=== PATIENT | female | born 1965 | race Two or more races ===

== ENCOUNTER 2016-12-31 18:41 | Inpatient (IN) | payer BC ==
[~2016-12-31] VITALS: Ht 165.1 cm; Wt 65.8 kg
[2016-12-31] MEDS ORDERED: MECLIZINE HCL 25 MG TABLET ONE (18:45)
[2016-12-31] MEDS ORDERED: ONDANSETRON HCL/PF 4 MG/2 ML VIAL ONE ×2 (18:45→20:53)
[2016-12-31 18:58] LABS: BASOPHILS # (AUTO) 0.1 /CMM (0.0-0.2); EOSINOPHILS # (AUTO) 0.4 /CMM (0.0-0.7); EOSINOPHILS % (AUTO) 5.3 % (0.0-6.0); HEMATOCRIT 40 % (33-45); HEMOGLOBIN 13.6 g/dL (11.5-14.8); LYMPHOCYTES # (AUTO) 2.6 /CMM (0.8-4.8); MEAN CORPUSCULAR HEMOGLOBIN 31 PG (26.0-33.0); MEAN CORPUSCULAR HGB CONC 34 g/dl (31.0-36.0); MEAN CORPUSCULAR VOLUME 92 fL (82-100); MONOCYTES # (AUTO) 0.5 /CMM (0.1-1.30); MONOCYTES % (AUTO) 7.3 % (2.0-12.0); NEUTROPHILS # (AUTO) 3.8 /CMM (1.8-8.9); NEUTROPHILS % (AUTO) 51.4 % (43.0-81.0); PLATELET COUNT (AUTO) 289 /CMM (150-450); RDW COEFFICIENT OF VARIATION 11.5 (11.5-15.0); RED BLOOD CELL COUNT(AUTO) 4.37 MIL/uL (4.0-5.2); WHITE BLOOD COUNT (AUTO) 7.4 K/uL (4.3-11.0)
[2016-12-31] MEDS ORDERED: IV NS 0.9% 1,000 ML BAG IV ONE ×2 (19:00→23:00)
[2016-12-31] MEDS ORDERED: ONDANSETRON HCL/PF 4 MG/2 ML VIAL IV ONE ×2 (19:00→21:30)
[2016-12-31] MEDS ORDERED: MECLIZINE HCL 25 MG TABLET PO ONE (19:00)
[2016-12-31] MEDS ORDERED: DIAZEPAM 5 MG/ML 2 ML DISP.SYRIN IV ONE (19:00)
--- NOTE | 2016-12-31 19:00 | NUR ---
[id number]: NAUSEA, VOMITING, VERTIGO x 30 MIN LEGAL WORD PROCESSOR, BS 134 IN THE FIELD, NAD NOTED, VSS, RESP EVEN AND UNLABORED, PUT ON HOSPITAL GOWN, AND MONITOR, WAITING FOR MD JUNG.
[2016-12-31 19:09] LABS: CALCIUM, SERUM 9.2 mg/dL (8.5-10.1); CARBON DIOXIDE 25 mmol/L (21-32); CHLORIDE 104 mmol/L (98-107); CREATININE 0.7 mg/dL (0.6-1.3); GLUCOSE 123 mg/dL (74-106); POTASSIUM 3.4 mmol/L (3.5-5.1); SODIUM SERUM 139 mmol/L (136-145); UREA NITROGEN, BLOOD 15 mg/dL (7-18)
[2016-12-31 19:17] LABS: TROPONIN I < 0.017 ng/mL (0.00-0.056)
[2016-12-31] MEDS ORDERED: LORAZEPAM INJ 2 MG/ML VIAL ONE (19:53)
[2016-12-31] MEDS ORDERED: LORAZEPAM INJ 2 MG/ML VIAL IV ONE (20:00)
[2016-12-31] MEDS ORDERED: diphenhydrAMINE HCL 50 MG/ML VIAL ONE (20:53)
[2016-12-31] MEDS ORDERED: diphenhydrAMINE HCL 50 MG/ML VIAL IV ONE (21:30)
--- NOTE | 2016-12-31 21:35 | NUR ---
CALLED [facility], MACHINE STRIPER WAS PAGED.
--- NOTE | 2016-12-31 21:43 | NUR ---
Patient is resting comfortably in bed with eyes closed. Easily aroused. VSS
--- NOTE | 2016-12-31 23:15 | NUR ---
[id number] CONFIRMATION NUMBER FROM MED RESPONSE; ETA 1 HOUR
[2016-12-31 23:30] VITALS: BP 135/83
[2016-12-31] MEDS ORDERED: HYDROCODONE/APAP 5/325MG 1 EACH TABLET PO PRN (23:30)
[2016-12-31] MEDS ORDERED: MAGNESIUM HYDROXIDE 30 ML UDC PO PRN (23:30)
[2016-12-31] MEDS ORDERED: ACETAMINOPHEN 325 MG TABLET PO PRN (23:30)
[2016-12-31] MEDS ORDERED: ZOLPIDEM TARTRATE 5 MG TABLET PO PRN (23:30)
[2016-12-31] MEDS ORDERED: Z GUARD REMEDY 2 OZ OINT TP PRN (23:30)
--- NOTE | 2016-12-31 23:30 | NUR ---
BRANCH ACCOUNT EXECUTIVE INITIAL NOTES PT RECEIVED FROM ER VIA RANNA MARIE. PT IS HAVING VERTIGO AND UNABLE TO ANSWER QUESTIONS FULLY AT THIS TIME. AT BEDSIDE PROVIDING INFORMATION. PT HAD ONE EPISODE OF VOMITING ON ADMIT. IV ACCESS IS INTACT AND PATENT. PT ABLE TO MAKE NEEDS KNOW AND USES A BEDPAN. VITALS WNL. NO SIGNS OF SOB OR DISTRESS. BREATHING EVENLY AND UNLABORED ON RA. AWAITING ORDERS FROM ADMITTING. WILL CONTINUE TO MONITOR PT.
[2017-01-01] VITALS (8 sets, daily range): BP systolic 123–133; BP diastolic 73–82
[2017-01-01] MEDS: IV NS 0.9% 1,000 ML IV PRN ×2 (00:08→15:46)
[2017-01-01] MEDS ORDERED: ENOXAPARIN SODIUM 40 MG/0.4 ML DISP.SYRIN SQ SCH (01:30)
[2017-01-01] MEDS ORDERED: DIAZEPAM 5 MG/ML 2 ML DISP.SYRIN IV PRN (01:30)
[2017-01-01] MEDS ORDERED: ENOXAPARIN SODIUM 40 MG/0.4 ML DISP.SYRIN SQ ONE (01:50)
[2017-01-01] MEDS ORDERED: METOCLOPRAMIDE HCL 10 MG/2 ML VIAL ONE (03:47)
[2017-01-01] MEDS: METOCLOPRAMIDE HCL 10 MG/2 ML VIAL IV PRN (03:49)
[2017-01-01] MEDS ORDERED: ONDANSETRON HCL/PF 4 MG/2 ML VIAL ONE (06:36)
[2017-01-01] MEDS: ONDANSETRON HCL/PF 4 MG/2 ML VIAL IVP PRN ×2 (06:38→13:09)
[2017-01-01 06:41] LABS: BASOPHILS % (AUTO) 0.4 % (0.0-2.0); HEMATOCRIT 39 % (33-45); HEMOGLOBIN 13.3 g/dL (11.5-14.8); LYMPHOCYTES % (AUTO) 11.9 % (20.0-44.0); MEAN CORPUSCULAR HEMOGLOBIN 32 PG (26.0-33.0); MEAN CORPUSCULAR HGB CONC 34 g/dl (31.0-36.0); MEAN CORPUSCULAR VOLUME 93 fL (82-100); MONOCYTES # (AUTO) 0.2 /CMM (0.1-1.30); MONOCYTES % (AUTO) 2.4 % (2.0-12.0); NEUTROPHILS # (AUTO) 7.5 /CMM (1.8-8.9); NEUTROPHILS % (AUTO) 85.3 % (43.0-81.0); PLATELET COUNT (AUTO) 264 /CMM (150-450); RDW COEFFICIENT OF VARIATION 12.7 (11.5-15.0); RED BLOOD CELL COUNT(AUTO) 4.16 MIL/uL (4.0-5.2); WHITE BLOOD COUNT (AUTO) 8.8 K/uL (4.3-11.0)
--- NOTE | 2017-01-01 06:57 | NUR ---
BANK NOTE DESIGNER CLOSING NOTES PT IS IN BED RESTING WITH AT BED SIDE. PT COMPLAINTS OF INCREASE NAUSEA WITH ANY ACTIVITY. ZOFRAN WAS GIVEN. NO SIGNS OF SOB OR DISTRESS. WILL ENDORSE TO DAY SHIFT
[2017-01-01 07:04] LABS: CALCIUM, SERUM 8.4 mg/dL (8.5-10.1); CREATININE 0.6 mg/dL (0.6-1.3); MAGNESIUM 1.9 mg/dL (1.8-2.4); POTASSIUM 3.6 mmol/L (3.5-5.1)
--- NOTE | 2017-01-01 08:00 | NUR ---
tele swing tender: initial assessment received pt in bed asleep, but easily arousable. pt remains weak. pt c/o on and off vertigo. for neuro consult, awaiting md. pt aware. continue on ivf, infusing well. at bedside. kept pt npo. will continue to monitor.
[2017-01-01] MEDS ORDERED: MECL-102 PO (08:19)
[2017-01-01] MEDS ORDERED: MONT10TA22 PO (08:19)
[2017-01-01] MEDS ORDERED: LEVO5TAB19 PO (08:19)
[2017-01-01] MEDS: ASPIRIN 81 MG TAB.CHEW PO SCH (08:38)
--- NOTE | 2017-01-01 10:19 | NUR ---
tele rn oncology: neuro consult seen and examined by dr. mojica at this time. at bedside.
[2017-01-01] MEDS ORDERED: DIAZEPAM 5 MG/ML 2 ML DISP.SYRIN IV SCH (10:30)
[2017-01-01] MEDS: MECLIZINE HCL 25 MG TABLET PO SCH ×3 (11:23→22:10)
--- NOTE | 2017-01-01 11:30 | NUR ---
tele sanitary engineering teacher: md visit seen and examined by harpreet (acnp) at this time. kept pt npo as ordered. at bedside. will continue to monitor.
--- NOTE | 2017-01-01 11:55 | NUR ---
tele windows security analyst: notes pt taken to mri via gurney at this time with consents and checklist completed.
--- NOTE | 2017-01-01 12:50 | NUR ---
tele dormitory supervisor: notes pt back from mri and transferred safely back to bed. at bedside. will continue to monitor.
--- NOTE | 2017-01-01 13:09 | NUR ---
tele dispatcher service chief: notes c/o nausea, but no vomiting. medicated with zofran 4mg ivp by rn. will continue to monitor.
--- NOTE | 2017-01-01 13:15 | NUR ---
tele stage electrician helper: notes mri resulted and harpreet (acnp) made aware with no new order. pt and updated with result. will continue to monitor.
--- NOTE | 2017-01-01 13:39 | NUR ---
tele family and consumer sciences teacher: notes pt sounds asleep. daughter at bedside at this time. left and will be back later as stated. call light within reach.
[2017-01-01] MEDS ORDERED: GADOVERSETAMIDE 2.5 MMOL/5 ML VIAL IJ ONE (15:00)
[2017-01-01] MEDS ORDERED: GADOVERSETAMIDE 5 MMOL/10 ML VIAL IJ ONE (15:00)
--- NOTE | 2017-01-01 15:00 | NUR ---
tele wastewater treatment plant attendant: notes pt c/o being hungry. clear liquid trial (jello) provided, had 2 spoonsful, but still unable to tolerate at this time. family remains at bedside. will continue to monitor.
--- NOTE | 2017-01-01 18:00 | NUR ---
tele technical administrator: notes clear liquid trial (broth soup) provided, but unable to tolerate at this time. family at bedside. needs attended. will continue to monitor.
--- NOTE | 2017-01-01 19:38 | NUR ---
RN OPENING NOTES RECEIVED REPORT FROM SRIDEVI VILLARREAL LVN. FOUND Pt ASLEEP IN BED, WITH EQUAL CHEST RISE AND FALL. NO S/S OF ACUTE DISTRESS OR SOB NOTED. VISITING AT BEDSIDE. Pt IS A/OX3, VERBAL, ABLE TO MAKE NEEDS KNOWN. ON TELE, SR 70's-80's. CURRENTLY NPO EXCEPT MEDS. CAN ADVANCE TO CLEAR LIQUIDS TOLERATED. IV ACCESS ON RAC #20G, IVF NS @75ML/HR. SAFETY MEASURES IN PLACE. BED LOW, LOCKED, HOB ELEVATED, SIDE RAILS UP, CALL LIGHT AND BEDSIDE TABLE WITHIN REACH. WILL CONTINUE TO MONITOR Pt THROUGHOUT THE NIGHT FOR SAFETY.
[2017-01-01] MEDS: ENOXAPARIN SODIUM 40 MG/0.4 ML DISP.SYRIN SQ SCH (21:00)
[2017-01-01] MEDS: DIAZEPAM 5 MG/ML 2 ML DISP.SYRIN IV SCH (22:09)
[2017-01-01] MEDS: ATORVASTATIN 10 MG TABLET PO SCH (22:09)
--- NOTE | 2017-01-01 23:30 | NUR ---
RN NOTES HELD LOVENOX 40MG SCHEDULED ON 01/01 @2100. WAS GIVEN INITIAL DOSE OF LOVENOX 40MG ON 01/01 @0200. SPOKE WITH DR. DOHERTY AND SAID TO SKIP THE 2100 DOSE AND RESUME BACK ON 01/02 @2099. WILL ENDORSE TO DAYSHIFT RN TO INFORM THE NEXT NIGHTSHIFT RN THAT IT IS OK TO GIVE LOVENOX 40MG ON 01/02 @2100.
[2017-01-02 04:21] VITALS: BP 128/72
[2017-01-02] MEDS: MECLIZINE HCL 25 MG TABLET PO SCH ×3 (06:00→22:25)
[2017-01-02] MEDS: IV NS 0.9% 1,000 ML IV PRN ×2 (06:00→20:09)
[2017-01-02] MEDS: METOCLOPRAMIDE HCL 10 MG/2 ML VIAL IV PRN (06:27)
--- NOTE | 2017-01-02 06:30 | NUR ---
RN NOTES Pt C/O NAUSEA DENIED VOMITING. ADMINISTERED PRN REGLAN 10MG.
--- NOTE | 2017-01-02 06:45 | NUR ---
RN CLOSING NOTES NO SIGNIFICANT CHANGES NOTED DURING THE SHIFT. NO S/S OF ACUTE DISTRESS OR SOB NOTED. ALL NEEDS MET AND ATTENDED TO. SAFETY MEASURES IN PLACE. TELE READING SR 70. WILL ENDORSE TO DAYSHIFT RN FOR Pt's RAF.
[2017-01-02 07:05] LABS: BASOPHILS # (AUTO) 0.1 /CMM (0.0-0.2); BASOPHILS % (AUTO) 0.8 % (0.0-2.0); EOSINOPHILS # (AUTO) 0.1 /CMM (0.0-0.7); EOSINOPHILS % (AUTO) 1.5 % (0.0-6.0); HEMATOCRIT 38 % (33-45); HEMOGLOBIN 13.1 g/dL (11.5-14.8); LYMPHOCYTES # (AUTO) 2.1 /CMM (0.8-4.8); LYMPHOCYTES % (AUTO) 31.7 % (20.0-44.0); MEAN CORPUSCULAR HEMOGLOBIN 32 PG (26.0-33.0); MEAN CORPUSCULAR HGB CONC 34 g/dl (31.0-36.0); MEAN CORPUSCULAR VOLUME 93 fL (82-100); MONOCYTES # (AUTO) 0.5 /CMM (0.1-1.30); MONOCYTES % (AUTO) 7.6 % (2.0-12.0); NEUTROPHILS # (AUTO) 3.8 /CMM (1.8-8.9); NEUTROPHILS % (AUTO) 58.4 % (43.0-81.0); PLATELET COUNT (AUTO) 252 /CMM (150-450); RDW COEFFICIENT OF VARIATION 12.7 (11.5-15.0); RED BLOOD CELL COUNT(AUTO) 4.14 MIL/uL (4.0-5.2); WHITE BLOOD COUNT (AUTO) 6.5 K/uL (4.3-11.0)
[2017-01-02 07:22] LABS: CALCIUM, SERUM 8.4 mg/dL (8.5-10.1); CREATININE 0.6 mg/dL (0.6-1.3); POTASSIUM 3.2 mmol/L (3.5-5.1)
--- NOTE | 2017-01-02 07:50 | NUR ---
PROJECT CONTROL ANALYST OPENING NOTES PATIENT IS SLEEPING IN BED. SIDE RAILS ARE UP X2. BED IS LOCKED AND LOWERED. WILL MONITOR FOR NAUSEA AND VOMITING. RIGHT PERIPHERAL IV 20G PATENT AND INTACT. WILL CONTINUE TO MONITOR. PATIENT IS IN NO DISTRESS.
[2017-01-02 08:00] VITALS: BP 139/80
[2017-01-02] MEDS: DIAZEPAM 5 MG/ML 2 ML DISP.SYRIN IV SCH ×2 (08:14→21:00)
[2017-01-02] MEDS: ASPIRIN 81 MG TAB.CHEW PO SCH (08:14)
[2017-01-02] MEDS ORDERED: POTASSIUM CHLORIDE 20 MEQ TAB.PRT.SR PO SCH (11:30)
[2017-01-02 15:57] VITALS: BP 131/77
[2017-01-02 16:00] VITALS: BP 131/77
--- NOTE | 2017-01-02 17:41 | NUR ---
MS RN CLOSING NOTES PATIENT IS RESTING IN BED IN NO APPARENT DISTRESS. BED IS LOCKED AND LOWERED. BEDSIDE RAILS ARE UP X2. WILL ENDORSE CARE TO SOFT CRAB SHEDDER NURSE FOR RAF.
--- NOTE | 2017-01-02 19:20 | NUR ---
MS/RN OPENING NOTES PT RECEIVED RESTING COMFORTABLY IN BED, HOB ELEVATED. FAMILY AT BEDSIDE. A/OX4. ON ROOM AIR, BREATHING EVEN AND UNLABORED. NOTES SLIGHT DIZZINESS BUT DENIES N/V AT THIS TIME. IV TO RAC PATENT AND INTACT RUNNING IVF ORDERED. BED IN LOW/LOCKED POSITION WITH CALL LIGHT IN REACH. SIDE RAILS UPX2. WILL CONTINUE TO MONITOR
[2017-01-02 20:00] VITALS: BP 128/80
[2017-01-02] MEDS: ATORVASTATIN 10 MG TABLET PO SCH (22:25)
[2017-01-02] MEDS: ENOXAPARIN SODIUM 40 MG/0.4 ML DISP.SYRIN SQ SCH (22:26)
--- NOTE | 2017-01-02 23:00 | NUR ---
MS/RN NOTES SCHEDULED VALIUM IN PYXIS OUT OF STOCK. CHECKED MULTIPLE PYXIS' THROUGHOUT HOSPITAL, NURSING CAR BODY INSPECTOR SAYS SHE ALSO DOES NOT HAVE IT. POKE IN DOUBLE CHECKED. NOT SEEN IN [place] OR PT'S CASSETTE.
[2017-01-02] MEDS ORDERED: KEY,NONCONTROL,TO KEEP IN PYXI 1 EA MC ONE (23:04)
[2017-01-03] MEDS ORDERED: MECLIZINE HCL 25 MG TABLET ONE (05:53)
[2017-01-03] MEDS: MECLIZINE HCL 25 MG TABLET PO SCH ×3 (06:05→22:11)
--- NOTE | 2017-01-03 06:45 | NUR ---
MS/RN CLOSING NOTES PT ASLEEP, AT BEDSIDE. REMAINS ON ROOM AIR, BREATHING EVEN AND UNLABORED. REPORTS SLIGHT DIZZINESS BUT DENIES NAUSEA AND VOMITING. RAC PATENT AND INTACT RUNNING IVF ORDERED. NO SIGNIFICANT CHANGES OVERNIGHT. MADE PT COMFORTABLE DURING SHIFT. ALL NEEDS MET. BED IN LOW/LOCKED POSITION, CALL LIGHT IN REACH AND SIDE RAILS UPX2. WILL ENDORSE TO AM SHIFT RAF.
[2017-01-03 07:34] LABS: CALCIUM, SERUM 8.5 mg/dL (8.5-10.1); CREATININE 0.6 mg/dL (0.6-1.3); POTASSIUM 3.6 mmol/L (3.5-5.1)
[2017-01-03 08:00] VITALS: BP 140/94
--- NOTE | 2017-01-03 08:06 | NUR ---
MS RN OPENING NOTES PATIENT IS ALERT AND ORIENTED. PATIENT IS IN NO APPARENT DISTRESS. PATIENT IS RESTING IN BED. BEDSIDE RAILS ARE UP X2. BED IS LOCKED AND LOWERED. WILL CONTINUE TO MONITOR.
[2017-01-03] MEDS: ASPIRIN 81 MG TAB.CHEW PO SCH (08:44)
[2017-01-03] MEDS: ONDANSETRON HCL/PF 4 MG/2 ML VIAL IVP PRN ×2 (08:54→19:15)
[2017-01-03] MEDS ORDERED: DIAZEPAM 5 MG/ML 2 ML DISP.SYRIN IV SCH (09:00)
[2017-01-03] MEDS: IV NS 0.9% 1,000 ML IV PRN ×2 (09:47→22:12)
[2017-01-03] MEDS ORDERED: ASPI81TA2 PO (11:26)
[2017-01-03] MEDS ORDERED: DIAZ5TAB4 PO (11:26)
[2017-01-03] MEDS ORDERED: ONDA4TAB8 SL (11:26)
[2017-01-03] MEDS ORDERED: ATOR10TA PO (11:26)
[2017-01-03] MEDS: DIAZEPAM 5 MG TABLET PO SCH ×2 (12:16→22:11)
--- NOTE | 2017-01-03 12:23 | NUR ---
SEEN BY DR SIMS WHO STATED THAT PT IS NOT CLEARED FOR DISCHARGE BECAUSE THE PT CAN'T AMBULATE SAFELY,FALL RISK AND STILL VERY UNSTEADY.WILL ORDER P.T. TO EVAL THE PT.WILL COORDINATE WITH EVANGELINA ALLEN NP.
--- NOTE | 2017-01-03 15:00 | NUR ---
SEEN BY P.T. AND STATED THAT PT IS VERY UNSTEADY AND UNSAFE.NEEDS CONTACT GUARD ASSIST.
--- NOTE | 2017-01-03 15:30 | NUR ---
NOTIFIED EVANGELINA ALLEN THAT PT WANTS TO GO HOME BUT PT EVALUATION DOES STATES PT IS VERY UNSTEADY. EVANGELINA ALLEN HELD DISCHARGE FOR PT.
[2017-01-03 16:00] VITALS: BP 128/91
--- NOTE | 2017-01-03 18:50 | NUR ---
DOG FOOD SHREDDER OPERATOR CLOSING NOTES PT IS ALERT AND ORIENTED. RESTING IN BED. BEDSIDE RAILS ARE UP X2. BED IS LOCKED AND LOWERED. WILL ENDORSE CARE TO CONCRETE VIBRATOR OPERATOR NURSE FOR RAF.
[2017-01-03 19:42] VITALS: BP 143/87
--- NOTE | 2017-01-03 19:45 | NUR ---
MS RN OPENING NOTES PATIENT RECEIVED LAYING IN BED IN SEMI ROCHA POSITION. A & O X 4. NO C/O PAIN, NO SOB, NO ACUTE DISTRESS, NO N/V NOTED AT THIS TIME. FAMILY AT BEDSIDE. IV ACCESS TO RAC RUNNING WITH NS @ 75ML/HR, IV ACCESS INTACT PATENT. NO S/S OF INFECTION NOTED. BED SIDE RAILS UP X 2 FOR SAFETY. ON BED REST DUE TO WEAKNESS. ABLE TO VERBALIZE NEEDS. BED IN LOW LOCKED POSITION. CALL LIGHT WITHIN REACH. CONTINUING TO MONITOR.
[2017-01-03] MEDS: METOCLOPRAMIDE HCL 10 MG/2 ML VIAL IV PRN (20:40)
--- NOTE | 2017-01-03 20:41 | NUR ---
PRN REGLAN: PT C/O BEING NAUSEATED, REQUESTING FOR MEDICATION. PRN REGLAN 10MG IVP ADMINISTERED TO THE PT AT THIS TIME, EDUCATION PT REGARDING MEDICATION SIDE EFFECT, WILL CONTINUE TO MONITOR AND REASSESS
[2017-01-03] MEDS: ATORVASTATIN 10 MG TABLET PO SCH (22:10)
[2017-01-03] MEDS ORDERED: ENOXAPARIN SODIUM 40 MG/0.4 ML DISP.SYRIN SQ ONE (22:12)
[2017-01-03] MEDS: ENOXAPARIN SODIUM 40 MG/0.4 ML DISP.SYRIN SQ SCH (22:18)
[2017-01-04 08:00] VITALS: BP 129/85
--- NOTE | 2017-01-04 08:00 | NUR ---
MS RN OPENING NOTES PATIENT IS AWAKE AND ALERT. PATIENT IS RESTING IN BED COMFORTABLY. STATES THAT SHE WANTS TO WALK. BEDSIDE RAILS ARE UP X2. BED IS LOCKED AND LOWERED. WILL CONTINUE TO MONITOR.
[2017-01-04] MEDS: DIAZEPAM 5 MG TABLET PO SCH (08:59)
[2017-01-04] MEDS: ASPIRIN 81 MG TAB.CHEW PO SCH (08:59)
--- NOTE | 2017-01-04 09:00 | NUR ---
MS RN NOTES SPOKE TO EVANGELINA ALLEN. PATIENT IS OK FOR DISCHARGE. WILL BE DISCHARGED TO WITH HOME HEALTH AND PHYSICAL THERAPY. WILL PROVIDE WALKER.
[2017-01-04] MEDS: MECLIZINE HCL 25 MG TABLET PO SCH (12:13)
--- NOTE | 2017-01-04 12:30 | NUR ---
PATIENT WAS TAKEN TO OR FOR PACEMAKER PLACEMENT. Addendum: 01/04/17 at 1327 by ASHA GUERRERO RN NOTE FOR WRONG PATIENT.
--- NOTE | 2017-01-04 14:00 | NUR ---
PATIENT WAS ESCORTED OUT OF THE HOSPITAL VIA WHEELCHAIR. PATIENT IS LEAVING WITH BY CAR. PATIENT IS STABLE.
== END 2017-01-04 14:00 | disposition home health service (06) | DRG 149 ==
LOC: ER 18:43 → TELE 21:36 → MED 01-02 10:21
PROVIDERS: ADMIT Nurse Practitioner Acute Care; ATTEND Nurse Practitioner Acute Care
DX: H81.399 Other peripheral vertigo, unspecified ear (principal); E87.6 Hypokalemia; I10 Essential (primary) hypertension; Z86.73 Personal history of transient ischemic attack (TIA), and cerebral infarction without residual deficits
CPT/HCPCS: 36415; 70450-TC; 70553-TC; 80048-TC; 80061-TC; 83735-TC; 84100-TC; 84443-TC; 84484-TC; 85025-TC; 87081-TC; 97116-TC; 97530-TC; A4606; A9579; J1200; J1650; J2060; J2405; J2765; J3360; J7030; J8597; Z7610